=== PATIENT | female | born 1945 | race Caucasian/White ===

== ENCOUNTER → 2016-04-28 | Outpatient (CLI) | payer MEDICARE ==
--- NOTE | 2016-04-28 16:56 | WOMENS IMAGING REPORT ---
EXAM DESCRIPTION: RIGHT DIAGNOSTIC MAMMO W/CAD; U/S BREAST UNILAT LIMITED COMPLETED DATE/TIME: 04/28/2016 10:17 am; 04/28/2016 11:42 am REASON FOR STUDY: N63, BREAST LUMP; LUMP;N63 N63 UNSPECIFIED LUMP IN BREAST COMPARISON: Bilateral screening mammo 03/06/2016 TECHNIQUE: Standard craniocaudal, 90 mediolateral, and mediolateral oblique views of the right lino st recorded using digital acquisition. Right breast ultrasound was also performed LIMITATIONS: None. FINDINGS: RIGHT BREAST MASSES: No suspicious masses. In particular, no discrete mass is seen in the right breast 12 o'clock periareolar region by mammography CALCIFICATIONS: No new or suspicious calcifications. ARCHITECTURAL DISTORTION: None. DEVELOPING DENSITY: None. ASYMMETRY: None noted. OTHER: No other significant findings. Read with the assistance of CAD: [facility] - [employer] Analyst Version 9.2 Right breast ultrasound: Patient indicates a palpable abnormality in the right periareolar 12 o'clock position. Ultrasound of this area demonstrates no discrete cystic or solid lesions. No dilated ducts. No worrisome acousti c absorption. No focal findings. BREAST DENSITY: b. There are scattered areas of fibroglandular density. BIRAD: 1 Negative. RECOMMENDATION: RECOMMENDED FOLLOW UP: Please continue bilateral screening mammography in March 06. Consider bilateral screening tomosynthesis. SPECIFIC INTERVENTION/IMAGING/CONSULTATION RECOMMENDED:No additional intervention/ imaging/consultati on needed at this time. COMMUNICATION:Patient notified by letter COMMENT: PATIENT NOTIFIED BY LETTER. The [employer] (ACR) has developed recommendations for screening MRI of the breast s in certain patient populations, to be used in conjunction with mammography. Breast MRI surveillanc e may be appropriate for women with more than 20% lifetime risk of developing breast cancer as deter mined by genetic testing, significant family history of the disease, or history of mantle radiation f or Hodgkins Disease. ACR Practice Guidelines 2008. TECHNICAL DOCUMENTATION: FINDING NUMBER: (1) ASSESSMENT: (1) JOB ID: [id number] [employer]- All Rights Reserved
--- NOTE | 2016-04-28 16:57 | WOMENS IMAGING REPORT ---
EXAM DESCRIPTION: RIGHT DIAGNOSTIC MAMMO W/CAD; U/S BREAST UNILAT LIMITED COMPLETED DATE/TIME: 04/28/2016 10:17 am; 04/28/2016 11:42 am REASON FOR STUDY: N63, BREAST LUMP; LUMP;N63 N63 UNSPECIFIED LUMP IN BREAST COMPARISON: Bilateral screening mammo 03/06/2016 TECHNIQUE: Standard craniocaudal, 90 mediolateral, and mediolateral oblique views of the right lino st recorded using digital acquisition. Right breast ultrasound was also performed LIMITATIONS: None. FINDINGS: RIGHT BREAST MASSES: No suspicious masses. In particular, no discrete mass is seen in the right breast 12 o'clock periareolar region by mammography CALCIFICATIONS: No new or suspicious calcifications. ARCHITECTURAL DISTORTION: None. DEVELOPING DENSITY: None. ASYMMETRY: None noted. OTHER: No other significant findings. Read with the assistance of CAD: [facility] - [employer] Technology Manager Version 9.2 Right breast ultrasound: Patient indicates a palpable abnormality in the right periareolar 12 o'clock position. Ultrasound of this area demonstrates no discrete cystic or solid lesions. No dilated ducts. No worrisome acousti c absorption. No focal findings. BREAST DENSITY: b. There are scattered areas of fibroglandular density. BIRAD: 1 Negative. RECOMMENDATION: RECOMMENDED FOLLOW UP: Please continue bilateral screening mammography in March 06. Consider bilateral screening tomosynthesis. SPECIFIC INTERVENTION/IMAGING/CONSULTATION RECOMMENDED:No additional intervention/ imaging/consultati on needed at this time. COMMUNICATION:Patient notified by letter COMMENT: PATIENT NOTIFIED BY LETTER. The [employer] (ACR) has developed recommendations for screening MRI of the breast s in certain patient populations, to be used in conjunction with mammography. Breast MRI surveillanc e may be appropriate for women with more than 20% lifetime risk of developing breast cancer as deter mined by genetic testing, significant family history of the disease, or history of mantle radiation f or Hodgkins Disease. ACR Practice Guidelines 2008. TECHNICAL DOCUMENTATION: FINDING NUMBER: (1) ASSESSMENT: (1) JOB ID: [id number] [employer]- All Rights Reserved
== END ==
LOC: WI 09:56
PROVIDERS: ATTEND Physician Assistant
DX: N63 Unspecified lump in breast (principal)
CPT/HCPCS: 76642; G0204

== ENCOUNTER 2018-05-07 19:49 | Emergency (ER) | payer MEDICARE ==
--- NOTE | 2018-05-07 22:20 | ER Document Report ---
ED General - General Chief Complaint: Cough Stated Complaint: COUGH,CONGESTION Time Seen by Provider: 05/07/18 21:58 Primary Care Provider: ZHENG DOBBS PA-C [Primary Care Provider] - Follow up as needed Notes: Patient is a pleasant 72-year-old female who presents with complaint of cough and congestion for 1 month. She says that she had whooping cough at 4 weeks of age. She said earlier today when she was coughing she made a sound which made her concerned that she could have whooping cough and that she made a quick inhale after coughing. She says subjective fevers. She does not have a thermometer at home. No vomiting. No chest pain. No abdominal pain. She said a lot of runny nose congestion. Pressure behind her ears. She has not seen her doctor. Says her doctor is in [place] feels that she has not had a chance to make it there. She has a history of asthma, hypertension, diabetes, and hypothyroidism. She does not smoke. She quit smoking in the s. She does not use inhalers because they "make her feel bad" and she says they also cause burning her throat nose and sometimes bloody noses. TRAVEL OUTSIDE OF THE [place] IN LAST 30 DAYS: No Past Medical History - Social History Smoking Status: Former Smoker Frequency of alcohol use: None Drug Abuse: None Family History: Reviewed & Not Pertinent Review of Systems - Review of Systems Notes: My Normal Review Basic REVIEW OF SYSTEMS: CONSTITUTIONAL : Subjective fevers EENT: Nasal congestion RESPIRATORY: Recurrent cough GASTROINTESTINAL: Denies abdominal pain. Denies nausea, vomiting, or diarrhea. GENITOURINARY: Denies difficulty urinating, painful urination, burning, frequency, or blood in urine. MUSCULOSKELETAL: Denies neck or back pain or joint pain or swelling. SKIN: Denies rash or skin lesions. NEUROLOGICAL: Denies altered mental status or loss of consciousness. Denies headache. Denies weakness or paralysis or loss of use of either side. Denies problems with gait or speech. Denies sensory or motor loss. ALL OTHER SYSTEMS REVIEWED AND NEGATIVE. Physical Exam - Vital signs Vitals: Temp Pulse Resp BP Pulse Ox 99.6 F 83 18 172/66 H 97 05/07/18 19:58 05/07/18 19:58 05/07/18 19:58 05/07/18 19:58 05/07/18 19:58 - Notes Notes: General Appearance: Well nourished, alert, cooperative, no acute distress, no obvious discomfort. No nasal congestion on exam. Vitals: reviewed, See vital signs table. Head: no swelling or tenderness to the head Eyes: PERRL, EOMI, Conjuctiva clear Mouth: No decreasd moisture Throat: No tonsillar inflammation, No airway obstruction, No lymphadenopathy Ears: Normal-appearing tympanic membranes bilaterally. Neck: Supple, no neck tenderness, No thyromegaly Lungs: No wheezing on lung auscultation. Lung weldon are clear. No accessory muscle use. No tachypnea. No increased work of breathing. Heart: Normal rate, Regular rythm, No murmur, no rub Extremities: good pulses in all extremities, no swelling or tenderness in the extremities, no edema. Skin: warm, dry, appropriate color, no rash Neuro: speech clear, oriented x 3, normal affect, responds appropriately to questions. Course - Re-evaluation Re-evalutation: 05/07/18 23:28 Patient's chest x-ray shows evidence of pneumonitis. They also read as could be potentially related to pulmonary edema. I do not suspect pulmonary edema as the patient has no rales on lung auscultation, no leg edema, and the patient has been having runny nose cough and congestion which is more consistent with that of pneumonitis. Explained this reasoning to the patient and she is agreeable with it at this time. I will place patient on azithromycin. I encouraged her follow-up with her doctor or follow-up with the ER in 5 days for reevaluation to make sure there symptoms improve after course of the antibiotic. I encouraged her return to ER immediately if she has fevers, difficulty breathing, worsening of her symptoms, or if she feels unwell. Patient agrees with plan and will be discharged home. Dictation of this chart was performed using voice recognition software; therefore, there may be some unintended grammatical errors. - Vital Signs Vital signs: Temp Pulse Resp BP Pulse Ox 99.6 F 83 18 172/66 H 97 05/07/18 19:58 05/07/18 19:58 05/07/18 19:58 05/07/18 19:58 05/07/18 19:58 Discharge - Discharge Clinical Impression: Cough, Pneumonitis Condition: Good Disposition: HOME, SELF-CARE Additional Instructions: Please take the antibiotic as prescribed. Please follow up with your doctor or the ER if you d not have improvement after the 5 day course of the antibiotic. please return to the ER immediately if you develop worsening difficulty breathing, recurrent fevers, or feel that you are worsening in any way. Prescriptions: Azithromycin [Zithromax 250 mg Tablet] 250 mg PO DAILY #4 tablet Referrals: ZHENG DOBSB PA-C [Primary Care Provider] - Follow up in 3-5 days
--- NOTE | 2018-05-07 23:19 | RADIOLOGY REPORT (SQ) ---
EXAM DESCRIPTION: XR CHEST 2 VIEWS COMPLETED DATE/TME: 05/07/2018 22:16 CLINICAL HISTORY: 72 years Female, cough COMPARISON: None. NUMBER OF VIEWS/TECHNIQUE: 2, Frontal, Lateral FINDINGS: Adequate lung volume, mild interstitial markings, normal cardiac silhouette, and intact bony thorax. Atherosclerotic vascular disease. IMPRESSION: Mild interstitial markings. Differential diagnosis includes pulmonary edema, atypical pneumonitis, and chronic interstitial lung disease.
[2018-05-07] MEDS ORDERED: AZITHROMYCIN 250 MG TABLET PO ONE (23:26)
[2018-05-07 23:33] VITALS: BP 157/66
== END 2018-05-08 00:04 | disposition home or self-care (01) ==
LOC: ER 19:49
DX: J18.9 Pneumonia, unspecified organism (principal); R05 Cough; R09.89 Other specified symptoms and signs involving the circulatory and respiratory systems; R09.81 Nasal congestion; J45.909 Unspecified asthma, uncomplicated; I10 Essential (primary) hypertension; E11.9 Type 2 diabetes mellitus without complications; Z86.19 Personal history of other infectious and parasitic diseases; Z87.891 Personal history of nicotine dependence
CPT/HCPCS: 99283; 71046; A9270

== ENCOUNTER → 2018-10-26 | Outpatient (CLI) | payer MEDICARE ==
--- NOTE | 2018-10-26 12:13 | WOMENS IMAGING REPORT ---
EXAM DESCRIPTION: 3D SCREENING MAMMO BILAT COMPLETED DATE/TIME: 10/26/2018 12:03 pm REASON FOR STUDY: Z12.31 ENCOUNTER FOR SCREENING MAMMOGRAM FOR MALIGNANT NEOPLASM OF BREAST Z12.31 ENCNTR SCREEN MAMMOGRAM FOR MALIGNANT NEOPLASM OF ABHIJIT COMPARISON: 03/06/2016. EXAM PARAMETERS: Views: Standard craniocaudal and mediolateral oblique views of each breast recorded using digital acquisition and breast tomosynthesis. Read with the assistance of CAD. .[facility] - [employer] Scientist Version 9.2 LIMITATIONS: None. FINDINGS: No suspicious masses, suspicious calcifications or architectural distortion. No areas of c oncern. IMPRESSION: NEGATIVE MAMMOGRAM. BIRADS 1. BREAST DENSITY: b. There are scattered areas of fibroglandular density. BIRAD: ASSESSMENT: 1 NEGATIVE RECOMMENDATION: ROUTINE SCREENING COMMENT: The patient has been notified of the results by letter per MQSA requirements. Additional no tification policies are in place for contacting patient with suspicious or incomplete findings. Quality ID #[id number]: The [employer] recommends an annual screening mammogram for women aged 40 years or over. This facility utilizes a reminder system to ensure that all patients receive reminder letters, and/or direct phone calls for appointments. This includes reminders for routine scr eening mammograms, diagnostic mammograms, or other Breast Imaging Interventions when appropriate. Th is patient will be placed in the appropriate reminder system. TECHNICAL DOCUMENTATION: FINDING NUMBER: (1) ASSESSMENT: (1) JOB ID: [id number]- All Rights Reserved Reading location - IP/workstation name: [email or web address]
== END ==
LOC: WI 11:18
PROVIDERS: ATTEND Family Medicine
DX: Z12.31 Encounter for screening mammogram for malignant neoplasm of breast (principal)
CPT/HCPCS: 77063; 77067